=== PATIENT | male | born 2000 | race Caucasian/White ===

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

== ENCOUNTER 2022-01-04 12:08 | Emergency (ER) | payer MEDICAID ==
[~2022-01-04] VITALS: Ht 185.4 cm; Wt 63.6 kg
[2022-01-04 12:19] VITALS: BP 121/61
[2022-01-04] MEDS ORDERED: dexamethasone sod phosphate 10mg/ml inj IM STA (14:29)
[2022-01-04] MEDS ORDERED: amox tr/potassium clavulanate 875/125mg TAB PO ONE (14:30)
[2022-01-04] MEDS ORDERED: HYDROcodone/acetaminophen 5mg/325mg tablet PO ONE (14:30)
[2022-01-04] MEDS ORDERED: ondansetron 4mg rapidly disintigrating tab PO ONE (14:30)
[2022-01-04] MEDS ORDERED: AMOX-117 PO (14:51)
[2022-01-04] MEDS ORDERED: PRED20TA PO (14:51)
[2022-01-04] MEDS ORDERED: IBUP-1984 PO (14:51)
== END 2022-01-04 15:03 | disposition home or self-care (01) ==
LOC: ER 12:08
DX: J01.00 Acute maxillary sinusitis, unspecified (principal); Z79.899 Other long term (current) drug therapy
CPT/HCPCS: 96372; 99284; J1100

== ENCOUNTER 2023-07-28 01:56 | Emergency (ER) | payer MEDICAID ==
[~2023-07-28] VITALS: Ht 182.9 cm; Wt 75.0 kg
[2023-07-28 03:42] LABS: BASOPHILS % (AUTO) 0.2 % (0-1); EOSINOPHILS % (AUTO) 0.1 % (0-6); HEMATOCRIT 45.3 % (42.0-52.0); HEMOGLOBIN 15.6 g/dl (14.0-17.9); LYMPHOCYTES # (AUTO) 1.8 X10'3 (1.1-4.8); LYMPHOCYTES % (AUTO) 20.4 % (21-51); MEAN CORPUSCULAR HEMOGLOBIN 32.3 PG (27.0-31.0); MEAN CORPUSCULAR HGB CONC 34.4 g/dL (33.0-36.5); MEAN PLATELET VOLUME 7.4 FL (7.4-10.4); MONOCYTES # (AUTO) 0.7 X10'3 (0-0.9); MONOCYTES % (AUTO) 8.6 % (2-12); NEUTROPHILS # (AUTO) 6.1 X10'3 (1.8-7.7); NEUTROPHILS % (AUTO) 70.7 % (42-75); PLATELET COUNT 206 X10'3 (140-440); RED BLOOD COUNT 4.82 X10'6 (4.70-6.10); RED CELL DISTRIBUTION WIDTH 12.9 % (11.5-14.5); WHITE BLOOD COUNT 8.7 X10'3 (4.5-11.0)
[2023-07-28 03:51] LABS: ALANINE AMINOTRANSFERASE 31 U/L (12-78); ALBUMIN 4.6 G/DL (3.4-5.0); ALBUMIN/GLOBULIN RATIO 1.5 (1.1-1.5); ALKALINE PHOSPHATASE 93 IU/L (46-116); ANION GAP 14 (8-16); ASPARTATE AMINO TRANSFERASE 27 U/L (10-37); BILIRUBIN,TOTAL 0.2 MG/DL (0.1-1.0); BLOOD UREA NITROGEN 7 MG/DL (7-18); CALCIUM 8.9 MG/DL (8.5-10.1); CHLORIDE 106 MMOL/L (99-107); CREATININE 0.88 MG/DL (0.60-1.10); GLUCOSE 99 MG/DL (70-104); POTASSIUM 3.4 MMOL/L (3.5-5.1); SODIUM 141 MMOL/L (135-145); TOTAL CARBON DIOXIDE 21.2 MMOL/L (24-32); TOTAL PROTEIN 7.7 G/DL (6.4-8.2); eCRCL 141 ML/MIN; eGFR > 90 ML/MIN
[2023-07-28 04:00] LABS: ETHANOL 175 MG/DL (<10); THYROID STIMULATING HORMONE 2.13 ulU/ml (0.34-4.50)
[2023-07-28] MEDS ORDERED: potassium Cl 20 mEq SR tablet PO STA (04:05)
[2023-07-28 04:11] LABS: BILIRUBIN,URINE NEGATIVE (Neg); CLARITY,URINE CLEAR (Clear); COLOR,URINE STRAW (Yellow); GLUCOSE, URINE NEGATIVE (Neg); KETONES,URINE NEGATIVE (Neg); LEUKOCYTE ESTERASE ,URINE NEGATIVE (Neg); NITRITES, URINE NEGATIVE (Neg); OCCULT BLOOD,URINE NEGATIVE (Neg); PROTEIN,URINE NEGATIVE (Neg); UROBILINOGEN,URINE 0.2 E.U/dL (0.2-1.0)
[2023-07-28 04:13] LABS: UA COLLECTION TYPE NON-SPECIFIED
[2023-07-28 04:53] LABS: URINE AMPHETAMINE SCREEN NEGATIVE (Neg); URINE BARBITUATE SCREEN NEGATIVE (Neg); URINE BENZODIAZEPINES SCREEN NEGATIVE (Neg); URINE CANNABINOID SCREEN POSITIVE (Neg); URINE COCAINE SCREEN NEGATIVE (Neg); URINE METHADONE SCREEN NEGATIVE (Neg); URINE OPIATE SCREEN NEGATIVE (Neg); URINE PHENCYCLIDINE SCREEN NEGATIVE (Neg)
[2023-07-28 06:09] VITALS: BP 91/49; PULSE 63; TEMP 97.7; O2SAT 99
[2023-07-28 07:35] VITALS: RESP 16
[2023-07-28] MEDS ORDERED: naltrexone 50mg tablet PO SCH (08:25)
[2023-07-28] MEDS ORDERED: NALT50TA PO (10:50)
== END 2023-07-28 10:55 | disposition home or self-care (01) ==
LOC: ER 01:56
DX: R45.851 Suicidal ideations (principal); Z20.822 Contact with and (suspected) exposure to COVID-19; F10.129 Alcohol abuse with intoxication, unspecified; Z79.899 Other long term (current) drug therapy; Y90.9 Presence of alcohol in blood, level not specified
CPT/HCPCS: 36415; 80053; 80305; 80320; 81003; 84443; 85025; 87811; 99283; 99285

== ENCOUNTER 2024-12-29 09:38 | Emergency (ER) | payer MEDICAID ==
[~2024-12-29] VITALS: Ht 185.4 cm; Wt 77.7 kg
[~2024-12-29 09:38] MED LIST changes: +NALT50TA5 PO
[2024-12-29 09:49] VITALS: BP 134/84; PULSE 65; RESP 18; O2SAT 99
--- NOTE | 2024-12-29 10:27 | RADIOLOGY REPORT ---
EXAM: DI FOOT, COMPLETE (3VW MIN) HISTORY: FOOT PAIN COMPARISON: HAND, COMPLETE (3VW MIN) on DOS: 12/15/20, HAND, COMPLETE (3VW MIN) on DOS: 12/15/20 TECHNIQUE: Three views of the left foot were performed. FINDINGS: No acute fracture or dislocation are identified about the left foot. IMPRESSION: 1. No acute fracture of the left foot.
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
[2024-12-29] MEDS ORDERED: CEPH500C2 PO (12:17)
[2024-12-29 12:28] VITALS: TEMP 98.9
== END 2024-12-29 12:32 | disposition home or self-care (01) ==
LOC: ER 09:39
DX: L03.032 Cellulitis of left toe (principal); Z79.899 Other long term (current) drug therapy; Z72.89 Other problems related to lifestyle
CPT/HCPCS: 73630; 99283